=== PATIENT | male | born 1990 | race African-American/Black ===

== ENCOUNTER → 2016-04-15 18:45 | Emergency (ER) | payer MEDICAID ==
[~2016-04-15 18:45] MED LIST: ALLERGY MEDICATION; CYCLOBENZAPRINE5 M1 PO; HYDROCORTISON28.411 TP; NO HOME MEDICATION XX
== END ==
LOC: EDMED 18:45
DX: K64.5 Perianal venous thrombosis (principal); Z88.2 Allergy status to sulfonamides

== ENCOUNTER 2016-07-17 14:03 | Emergency (ER) | payer OTHER, MEDICAID ==
[~2016-07-17 14:03] MED LIST changes: -ALLERGY MEDICATION; -CYCLOBENZAPRINE5 M1 PO
[2016-07-17] MEDS ORDERED: ALLERGY MEDICATION (14:44)
[2016-07-17] MEDS ORDERED: CYCLOBENZAPRINE5 M1 PO (15:16)
== END 2016-07-17 15:25 ==
LOC: EDMED 14:03
DX: S16.1XXA Strain of muscle, fascia and tendon at neck level, initial encounter (principal); R51 Headache; Z88.0 Allergy status to penicillin; Y92.410 Unspecified street and highway as the place of occurrence of the external cause; V49.40XA Driver injured in collision with unspecified motor vehicles in traffic accident, initial encounter